=== PATIENT | male | born 1965 | race Caucasian/White ===

== ENCOUNTER 2019-10-28 12:10 | Emergency (ER) | payer BC ==
[2019-10-28 12:23] VITALS: BP 141/97; PULSE 84
--- NOTE | 2019-10-28 12:45 | EDM.PDOC ---
ED HPI GENERAL MEDICAL PROBLEM - General Chief Complaint: Laceration Stated Complaint: LACERATION TO HEAD Time Seen by Provider: 10/28/19 12:12 Source of Information: Reports: Patient History Limitations: Reports: No Limitations - History of Present Illness INITIAL COMMENTS - FREE TEXT/NARRATIVE: She was installing in new air compressor in his shop today when he struck his head on the top resulting in bleeding over his forehead. He bled fairly profusely and the present in the emergency room for further evaluation. After wound was cleaned with peroxide and saline there is to superficial abrasions over the area that were not necessary for suture repair or glue. The area was cleaned and triple antibiotic ointment was placed over the abrasion. Onset: Today Duration: Minutes: Location: Reports: Head Quality: Reports: Ache Severity: Mild Improves with: Reports: Other (Gauze and compression) Worsens with: Reports: None Associated Symptoms: Reports: No Other Symptoms - Related Data Allergies Allergy/AdvReac Type Severity Reaction Status Date / Time No Known Allergies Allergy Verified 01/23/16 08:56 Home Meds: Home Meds Fenofibrate 160 mg PO DAILY 01/23/16 [History] Losartan/Hydrochlorothiazide [Losartan-HCTZ 100-25 MG] 1 each PO DAILY 01/23/16 [History] amLODIPine Besylate [Amlodipine Besylate] 10 mg PO DAILY 01/23/16 [History] atorvaSTATin [Lipitor] 10 mg PO DAILY 01/23/16 [History] Past Medical History Cardiovascular History: Reports: Hypertension ED ROS GENERAL - Review of Systems Review Of Systems: Comprehensive ROS is negative, except as noted in HPI. ED EXAM, SKIN/RASH Exam: See Below Exam Limited By: No Limitations General Appearance: Alert, WD/WN, No Apparent Distress Ears: Hearing Grossly Normal Nose: Normal Inspection Throat/Mouth: Normal Voice Head: Other (Superficial abrasion over the parietal lobe top of his scalp) Respiratory/Chest: No Respiratory Distress Back Exam: Normal Inspection Extremities: Normal Inspection Neurological: Alert, Oriented, Normal Cognition, Normal Gait, No Motor/Sensory Deficits Psychiatric: Normal Affect, Normal Mood Skin: Wound/Incision (Abrasion over the top of the scalp parietal lobe) Course - Vital Signs Last Recorded V/S: Last Vital Signs Temp 97.7 F 10/28/19 12:20 Pulse 84 10/28/19 12:20 Resp 18 10/28/19 12:20 BP 141/97 H 10/28/19 12:20 Pulse Ox 99 10/28/19 12:20 Departure - Departure Time of Disposition: 12:44 Disposition: Home, Self-Care 01 Condition: Good Clinical Impression: Scalp abrasion Qualifiers: Encounter type: initial encounter Qualified Code(s): S00.01XA - Abrasion of scalp, initial encounter - Discharge Information Instructions: Facial Laceration, [id number] Referrals: Debbie Regalado PA-C [Primary Care Provider] - Forms: ED Department Discharge Additional Instructions: 1. Keep the area clean and dry. 2. Tylenol or ibuprofen for any discomfort. 3. Follow-up your primary care as needed. Sepsis Event Note (ED) - Evaluation Sepsis Screening Result: No Definite Risk - Focused Exam Vital Signs: Vital Signs Temp Pulse Resp BP Pulse Ox 10/28/19 12:20 97.7 F 84 18 141/97 H 99 - Assessment/Plan Assessment:: Scalp abrasion Plan: 1. Keep the area clean and dry. 2. Tylenol or ibuprofen for any discomfort. 3. Follow-up your primary care as needed.
== END 2019-10-28 12:40 | disposition home or self-care (01) ==
LOC: KA.ED 12:10
DX: S00.01XA Abrasion of scalp, initial encounter (principal); I10 Essential (primary) hypertension; Z79.899 Other long term (current) drug therapy; W22.8XXA Striking against or struck by other objects, initial encounter
CPT/HCPCS: 99282; 99283

== ENCOUNTER 2022-10-16 09:45 | Emergency (ER) | payer BC ==
[2022-10-16 10:04] VITALS: BP 145/94; PULSE 81
[2022-10-16] MEDS: Lidocaine 1% 20 ML MDV INJECT ONE (10:40)
[2022-10-16] MEDS: ceFAZolin 1 GM Vial IM ONE (10:56)
[2022-10-16] MEDS: Water For Injection, Sterile 20 ML ONE (11:18)
== END 2022-10-16 11:00 | disposition home or self-care (01) ==
LOC: KA.ED 09:45
DX: S92.422B Displaced fracture of distal phalanx of left great toe, initial encounter for open fracture (principal); I10 Essential (primary) hypertension; Z79.899 Other long term (current) drug therapy; W20.8XXA Other cause of strike by thrown, projected or falling object, initial encounter
CPT/HCPCS: 12001; 73660-TA; 96372; 99283; J0690; J3490

== ENCOUNTER 2023-07-19 09:25 | Day surgery (SDC) | payer BC ==
[2023-07-19] MEDS ORDERED: Sodium Chloride 0.9% 10 ML Syringe FLUSH PRN (09:30)
[2023-07-19] MEDS: Lactated Ringers 1,000 ML IV SCH (09:50)
[2023-07-19] MEDS ORDERED: Propofol 200 MG/20 ML SDV ONE (10:37)
[2023-07-19] MEDS ORDERED: Midazolam 1 MG/ML 2 ML SDV ONE (10:37)
[2023-07-19 18:23] VITALS: BP 119/80; PULSE 82
== END 2023-07-19 12:05 | disposition home or self-care (01) ==
LOC: KA.SDS 09:25
PROVIDERS: ATTEND Surgery
DX: C20 Malignant neoplasm of rectum (principal); D12.0 Benign neoplasm of cecum; D12.3 Benign neoplasm of transverse colon; K57.30 Diverticulosis of large intestine without perforation or abscess without bleeding; K92.1 Melena; I10 Essential (primary) hypertension; E66.3 Overweight; Z79.899 Other long term (current) drug therapy; Z68.41 Body mass index [BMI] 40.0-44.9, adult
CPT/HCPCS: 45380; 45385; J2250; J2704; J7120; 00811; J3490